=== PATIENT | male | born 1950 | race Caucasian/White ===

== ENCOUNTER 2018-10-27 22:41 | Emergency (ER) | payer MEDICARE, BC | END 2018-10-27 23:20 | disposition home or self-care (01) | LOC: BURERS 22:41 | DX: L30.9 Dermatitis, unspecified (principal); I10 Essential (primary) hypertension; E78.5 Hyperlipidemia, unspecified; Z79.899 Other long term (current) drug therapy | CPT/HCPCS: 99282 ==

== ENCOUNTER 2019-07-21 14:51 | Emergency (ER) | payer MEDICARE, BC ==
[~2019-07-21 14:51] MED LIST: Iopamidol 370 76% 100 ML VIAL ONE
[2019-07-21 15:24] LABS: #Basophils 0.1 thou/uL (0.0-0.2); #Eosinphils 0.2 thou/uL (0.0-0.7); #Lymphocytes 2.7 thou/uL (1.20-3.40); #Monocytes 0.9 thou/uL (0.11-0.59); #Neutrophils 5.9 thou/uL (1.40-6.50); %Basophils 1.3 % (0.0-1.0); %Eosinophils 2.4 % (0.0-10.0); %Lymphocytes 27.2 % (21.0-51.0); %Monocytes 8.7 % (0.0-10.0); %Neutrophils 60.4 % (42.0-75.0); Hemoglobin 15.8 g/dL (14.0-18.0); Mean Corpuscular HGB CONC 30.5 g/dL (32.0-36.0); Mean Corpuscular Hemoglobin 29.2 pg (27.0-31.0); Mean Corpuscular Volume 95.6 fL (78.0-98.0); Mean Platelet Volume 8.3 fL (7.4-10.4); Platelet Count 225 thou/uL (130-400); RBC Distribution Width 14.6 % (11.5-14.5); Red Blood Cell (RBC) Count 5.42 mill/uL (4.70-6.10); White Blood Cell (WBC) Count 9.8 thou/uL (4.8-10.8)
[2019-07-21 15:41] LABS: ALT (SGPT) 17 U/L (8-55); AST (SGOT) 16 U/L (5-34); Albumin 4.3 g/dL (3.4-4.8); Alkaline Phosphatase 97 U/L (40-110); Anion Gap 15 mmol/L (10-20); BUN (Urea Nitrogen) 26 mg/dL (8.4-25.7); Bilirubin, Total 0.8 mg/dL (0.2-1.2); Calc. Creatinine Clearance 0 mL/min (70-130); Calcium 9.7 mg/dL (7.8-10.44); Carbon Dioxide 30 mmol/L (23-31); Chloride 103 mmol/L (98-107); Estimated GFR-MDRD 62; Globulin 3.5 g/dL (2.4-3.5); Glucose 108 mg/dL (80-115); Lipase 29 U/L (8-78); Potassium 4.6 mmol/L (3.5-5.1); Protein, Total 7.8 g/dL (5.8-8.1); Sodium 143 mmol/L (136-145)
[2019-07-21 15:50] LABS: Bilirubin Negative (Negative); Blood, Urine Negative (Negative); Clarity Clear (Clear); Glucose, Urine (Dipstick) Negative (Negative); Leukocyte Trace (Negative); Nitrite Negative (Negative); Protein, Urine (Dipstick) 30 mg/dL (Neg-Trace); Urobilinogen 0.2 mg/dL (Less than 2)
[2019-07-21 15:52] LABS: Bacteria/HPF 2+ HPF (None Seen); Mucous/LPF 3+ LPF (<2+); RBC/HPF 0-3 HPF (0-3); Squamous Epithelial 0-3 HPF (0-3); WBC/HPF 0-3 HPF (0-3)
[2019-07-21 15:58] LABS: CKMB 4.2 ng/mL (0-6.6)
[2019-07-21] MEDS ORDERED: Pantoprazole 40 MG VIAL ONE (16:45)
[2019-07-21] MEDS ORDERED: Aspirin Chewable 81 MG TAB ONE (16:45)
[2019-07-21] MEDS ORDERED: Nitroglycerin 0.4 MG TAB 1 EACH ONE (16:46)
[2019-07-21] MEDS ORDERED: Mag-Al Plus 1200 MG/1200 MG/120 MG/30 ML UDCUP ONE ×2 (16:48)
[2019-07-21] MEDS ORDERED: Lidocaine Viscous Sol 2% 15 ml UD Cup ONE (16:48)
--- NOTE | 2019-07-21 19:15 | RAD ---
CHEST TWO VIEWS: 07/21/19 Comparison with a 02/15/13 study shows no adverse change. The heart is normal in size and the lungs ar e clear. The trachea is midline. IMPRESSION: No acute thoracic finding. POS: HOME
--- NOTE | 2019-07-21 19:15 | CT ---
CT ABDOMEN AND PELVIS WITH CONTRAST: 07/21/19 The lung bases are clear. The liver, spleen, pancreas, adrenal glands, kidneys, and abdominal aorta s howed no acute findings. There are multiple gallstones within the gallbladder. The bowel shows no distention or wall thickening. Sigmoid diverticulosis is noted but no signs of div erticulitis were found. No free air of free fluid was present. CT of the pelvis showed no acute pelvic findings. No free fluid or inflammatory change was seen. Degenerative disc disease is seen in the lumbar spine. There is grade I spondylolisthesis of L5 on S1 with bilateral spondylolysis. IMPRESSION: 1. Gallstones. 2. Diverticulosis. 3. Degenerative lumbar findings plus spondylolisthesis. Findings called to Dr. Francis at 1415 on 07/21/19. POS: HOME
== END 2019-07-21 17:34 | disposition short-term general hospital (02) ==
LOC: BURERS 14:51
DX: I51.7 Cardiomegaly (principal); R10.13 Epigastric pain; R07.9 Chest pain, unspecified; R79.89 Other specified abnormal findings of blood chemistry; E78.2 Mixed hyperlipidemia; I10 Essential (primary) hypertension; Z79.82 Long term (current) use of aspirin; Z79.899 Other long term (current) drug therapy
CPT/HCPCS: 36415; 71046; 74177; 80053; 81003; 81015; 82553; 83690; 84484; 85025; 93005; 94760; 96374; C9113; Q9967

== ENCOUNTER 2020-10-23 15:55 | Outpatient (CLI) | payer MEDICARE, BC | END 2020-10-23 15:56 | disposition home or self-care (01) | LOC: BURRAD 15:55 | PROVIDERS: ATTEND Registered Nurse Community Health | DX: R11.0 Nausea (principal); K20.80 Other esophagitis without bleeding; K59.00 Constipation, unspecified; M16.12 Unilateral primary osteoarthritis, left hip; M47.816 Spondylosis without myelopathy or radiculopathy, lumbar region; Z96.641 Presence of right artificial hip joint | CPT/HCPCS: 74018 ==